=== PATIENT | female | born 1955 | race Caucasian/White ===

== ENCOUNTER 2016-12-01 08:28 | Day surgery (SDC) | payer BC ==
[~2016-12-01 08:28] MED LIST: FENTANYL 100MCG/2ML SOL ONE; LIDOCAINE HCL 1% MPF SOL ONE; PROPOFOL 500 MG/50 ML EMU IV ONE
[2016-12-01] MEDS ORDERED: BUPIVACAINE/EPI 0.5% 10 ML SOL INFIL ONE (09:12)
[2016-12-01 10:43] VITALS: BP 137/49; PULSE 76; RESP 18; TEMP 97.5; O2SAT 97
== END 2016-12-01 11:00 | disposition home or self-care (01) ==
LOC: SURG 08:28
PROVIDERS: ATTEND Surgery
DX: D24.1 Benign neoplasm of right breast (principal); N64.52 Nipple discharge
CPT/HCPCS: 19120; 99001; J2001; J2704; J3010; A6402